=== PATIENT | female | born 1960 | race African-American/Black ===

== ENCOUNTER 2018-07-01 11:08 | Emergency (ER) | payer BC ==
[~2018-07-01] VITALS: Ht 167.6 cm; Wt 74.8 kg
[2018-07-01] MEDS ORDERED: CALCIUM500 MG PO (11:23)
[2018-07-01] MEDS ORDERED: FOLIC ACID1 MG PO (11:23)
[2018-07-01] MEDS ORDERED: CENTRUM SILVER1 EAC4 PO (11:23)
[2018-07-01] MEDS ORDERED: LINZESS72 MCG PO (11:23)
[2018-07-01 11:39] LABS: ABSOLUTE BASOPHILS 0.1 thou/uL (0.0-0.2); ABSOLUTE EOSINOPHILS 0.2 thou/uL (0.0-0.7); ABSOLUTE LYMPHOCYTES 1.3 thou/uL (0.8-5.3); ABSOLUTE MONOCYTES 0.4 thou/uL (0.0-1.2); ABSOLUTE NEUTROPHILS 2.6 thou/uL (1.6-8.1); BASOPHILS 1.4 %; EOSINOPHILS 4.9 %; HEMATOCRIT 37.8 % (37.0-47.0); HEMOGLOBIN 12.1 gm/dL (12.0-15.0); LYMPHOCYTES 28.7 %; MCH 26.1 pg (26.0-34.0); MCV 81.8 fL (80.0-100.0); MONOCYTES 8.3 %; MPV 9.3 fl. (7.2-11.1); NUCLEATED RBCS 0 /100WBC; PLATELET COUNT* 221 thou/uL (150-400); POLYS 56.7 %; RBC 4.63 mil/uL (4.20-5.00); RDW-CV 14.5 % (10.5-14.5); WBC 4.6 thou/uL (4.0-11.0)
[2018-07-01 11:48] LABS: ANION GAP 6 mmol/L (7-16); BUN 9 mg/dL (7-18); CALCIUM 9.3 mg/dL (8.5-10.1); CHLORIDE 106 mmol/L (98-107); CO2 29 mmol/L (21-32); CREATININE 0.7 mg/dL (0.6-1.3); GLUCOSE 74 mg/dL (70-99); POTASSIUM 3.8 mmol/L (3.5-5.1); SODIUM 141 mmol/L (136-145)
[2018-07-01 11:59] LABS: ALBUMIN 3.5 g/dL (3.4-5.0); ALKALINE PHOSPHATASE 77 U/L (46-116); LIPASE 142 U/L (73-393); MAGNESIUM 1.7 mg/dL (1.8-2.4); NT-PRO BRAIN NAT PEPTIDE 111 pg/mL (<300); SGOT 28 U/L (15-37); SGPT 31 U/L (30-65); TOTAL BILIRUBIN 0.4 mg/dL (<0.1-1.0); TOTAL PROTEIN 7.4 g/dL (6.4-8.2); TROPONIN-I LEVEL <0.06 ng/mL (<0.06)
[2018-07-01] MEDS ORDERED: FLEXERIL PO (12:17)
[2018-07-01] MEDS ORDERED: HYDROCODONE-AP1 EAC6 PO (12:17)
[2018-07-01 12:26] VITALS: BP 152/86
--- NOTE | 2018-07-02 10:21 | EKG ---
[place] [address] ELECTROCARDIOGRAM REPORT Name: BESS HATFIELD Room: [facility]#: [id number] Admission: 07/01/18 Attend Phys: Discharge: 07/01/18 Date of : 60 Report #: [id number] THIS REPORT FOR: //name// [facility] ED Test Date: 2018-07-01 Test Time: 11:18:19 Pat Name: BESS HATFIELD Department: Room: Gender: [employer] Manager: Juan Alberto MARIE : 1960 Requested By: Serge Boyer Order Number: [id number] MD: Vik Estrada Measurements Intervals [place] Rate: 54 P: -15 WA: 146 QRS: -19 QRSD: 93 T: 8 QT: 422 QTc: 400 Interpretive Statements Sinus rhythm Borderline left axis deviation No previous ECG available for comparison Electronically Signed On 07-02-2018 10:20:56 [employer] SAL[employer] by Vik Estrada [email or web address] <ELECTRONICALLY SIGNED> By: Vik Estrada MD, [facility] 07/02/18 1020 1118 1118 Vik Estrada MD, FACC /EPI
== END 2018-07-01 12:27 | disposition home or self-care (01) ==
LOC: M.ERS 11:08
PROVIDERS: Emergency Medicine Emergency Medical Services
DX: R07.89 Other chest pain (principal); V43.02XA Car driver injured in collision with other type car in nontraffic accident, initial encounter; Y93.89 Activity, other specified; Y92.89 Other specified places as the place of occurrence of the external cause; Y99.8 Other external cause status; I10 Essential (primary) hypertension; Z88.0 Allergy status to penicillin; Z88.7 Allergy status to serum and vaccine

== ENCOUNTER 2019-10-02 09:37 | Emergency (ER) | payer BC ==
[~2019-10-02] VITALS: Ht 170.2 cm; Wt 71.2 kg
[~2019-10-02 09:37] MED LIST: CALCIUM500 MG PO; CENTRUM SILVER1 EAC4 PO; FLEXERIL PO; FOLIC ACID1 MG PO; HYDROCODONE-AP1 EAC6 PO; LINZESS72 MCG PO
[2019-10-02] MEDS ORDERED: TAMIFLU75 MG PO (09:57)
[2019-10-02] MEDS ORDERED: ENBREL25 MG/0.5 IM (09:57)
[2019-10-02] MEDS ORDERED: TESSALON PERLE100 MG PO (09:58)
[2019-10-02 10:46] LABS: INFLUENZA A ANTIGEN Negative (Negative); INFLUENZA B ANTIGEN Negative (Negative)
[2019-10-02] MEDS ORDERED: PROMETH-CODEIN 65 ML PO (11:57)
[2019-10-02] MEDS ORDERED: MEDROLDOSEPACK PO (11:57)
[2019-10-02] MEDS ORDERED: VENTOLIN HFA 1818 GM INH (11:57)
[2019-10-02 12:09] VITALS: BP 116/76
== END 2019-10-02 12:10 | disposition home or self-care (01) ==
LOC: M.ERS 09:37
PROVIDERS: Nurse Practitioner Family
DX: I10 Essential (primary) hypertension (principal); Z98.84 Bariatric surgery status; Z88.0 Allergy status to penicillin; Z88.7 Allergy status to serum and vaccine; R07.89 Other chest pain; R06.00 Dyspnea, unspecified

== ENCOUNTER 2021-06-15 04:45 | Emergency (ER) | payer BC ==
[~2021-06-15] VITALS: Ht 167.6 cm; Wt 74.8 kg
[~2021-06-15 04:45] MED LIST changes: +ENBREL25 MG/0.5 IM; +MEDROLDOSEPACK PO; +PROMETH-CODEIN 65 ML PO; +TAMIFLU75 MG PO; +TESSALON PERLE100 MG PO; +VENTOLIN HFA 1818 GM INH
[2021-06-15] MEDS ORDERED: INFUSION (04:57)
[2021-06-15 05:29] LABS: HEMOGLOBIN 11.4 gm/dL (12.0-15.0); MCH 26.3 pg (26.0-34.0); MCHC 31.7 g/dL (28.0-37.0); MCV 83.1 fL (80.0-100.0); MPV 8.2 fl. (7.2-11.1); NUCLEATED RBCS 0 /100WBC; PLATELET COUNT* 209 thou/uL (150-400); RBC 4.33 mil/uL (4.20-5.00); RDW-CV 14.9 % (10.5-14.5)
[2021-06-15 05:36] LABS: CALCIUM 9.1 mg/dL (8.5-10.1); CREATININE 0.8 mg/dL (0.6-1.3); POTASSIUM 4.2 mmol/L (3.5-5.1)
[2021-06-15 05:40] LABS: ALBUMIN 3.3 g/dL (3.4-5.0); TOTAL BILIRUBIN 0.3 mg/dL (<0.1-1.0); TOTAL PROTEIN 7.1 g/dL (6.4-8.2); WBC 1.8 thou/uL (4.0-11.0)
[2021-06-15 06:15] LABS: ABSOLUTE EOSINOPHILS 0.2 thou/uL (0.0-0.7); ABSOLUTE LYMPHOCYTES 0.6 thou/uL (0.8-5.3); ABSOLUTE MONOCYTES 0.3 thou/uL (0.0-1.2); ABSOLUTE NEUTROPHILS 0.7 thou/uL (1.6-8.1)
[2021-06-15 06:18] LABS: HYPOCHROMASIA 1+; PLATELET ESTIMATE ADEQUATE
[2021-06-15 06:25] VITALS: BP 130/65
--- NOTE | 2021-06-15 08:41 | EKG ---
[place] [address] ELECTROCARDIOGRAM REPORT Name: BESS HATFIELD Room: [facility]#: [id number] Admission: 06/15/21 Attend Phys: Discharge: 06/15/21 Date of : 60 Date of Service: 06/15/21 0449 Report #: [id number] THIS REPORT FOR: //name// [facility] ED Test Date: 2021-06-15 Test Time: 04:49:14 Pat Name: BESS HATFIELD Department: Room: Gender: Plaster [employer] Maker: : 1960 Requested By: Irma Sapp Order Number: [id number] MD: Eduardo Sorto Measurements Intervals [place] Rate: 73 P: 25 SD: 137 QRS: -12 QRSD: 92 T: 32 QT: 381 QTc: 420 Interpretive Statements Sinus rhythm Compared to ECG 07/01/2018 11:18:19 rate has increased Electronically Signed On 06-15-2021 8:41:27 CDT by Eduardo Sorto [email or web address] <ELECTRONICALLY SIGNED> By: Eduardo Sorto MD, [facility] 06/15/21 0841 0449 0449 Eduardo Sorto MD, [facility] /EPI
== END 2021-06-15 06:25 | disposition home or self-care (01) ==
LOC: M.ERS 04:45
PROVIDERS: Personal Emergency Response Attendant
DX: R07.89 Other chest pain (principal); R06.02 Shortness of breath; I10 Essential (primary) hypertension; M06.9 Rheumatoid arthritis, unspecified; Z98.84 Bariatric surgery status; Z79.899 Other long term (current) drug therapy; Z88.7 Allergy status to serum and vaccine; Z88.0 Allergy status to penicillin